=== PATIENT | female | born 1955 | race Caucasian/White ===

== ENCOUNTER → 2016-11-03 | Outpatient (CLI) | payer OTHER ==
--- NOTE | 2016-11-03 10:04 | MM ---
Reason for exam: screening (asymptomatic). Last mammogram was performed 1 year and 1 month ago. History: Patient is postmenopausal. Benign right mammotome panel of the right breast, July 31, 2010. Benign excisional biopsy of the left breast, June 07, 2007. Benign excisional biopsy of the right breast, December 24, 1999. Took hormonal contraceptives for 4 years beginning at age 48. Physical Findings: A clinical breast exam by your physician is recommended on an annual basis and results should be correlated with mammographic findings. MG Screening Mammo w CAD Bilateral CC and MLO view(s) were taken. Prior study comparison: September 30, 2015, bilateral MG screening mammo w CAD. November 24, 2013, bilateral digital screening mammo w/CAD. August 18, 2012, bilateral digital screening mammo w/CAD. There are scattered fibroglandular densities. Finding: There are typically benign dystrophic, round calcifications in both breasts. Previous mammotome biopsy in the right breast. Developing asymmetry stable in the left breast anterior middle depth. ASSESSMENT: Incomplete: need additional imaging evaluation, BI-RAD 0 RECOMMENDATION: Special view mammogram of the left breast. If lesion persists on supplemental views, image directed ultrasound is recommended. [facility] will attempt to contact patient to return for supplemental views and ultrasound if indicated.
== END | disposition home or self-care (01) ==
LOC: RADMAMWWP 06:48
PROVIDERS: ATTEND Obstetrics & Gynecology
DX: Z12.31 Encounter for screening mammogram for malignant neoplasm of breast (principal)

== ENCOUNTER → 2016-11-09 | Outpatient (CLI) | payer OTHER ==
--- NOTE | 2016-11-09 08:20 | MM ---
Reason for exam: additional evaluation requested from abnormal screening. Last mammogram was performed less than 1 month ago. History: Patient is postmenopausal. Benign right mammotome panel of the right breast, July 31, 2010. Benign excisional biopsy of the left breast, June 07, 2007. Benign excisional biopsy of the right breast, December 24, 1999. Took hormonal contraceptives for 4 years beginning at age 48. Physical Findings: Nurse did not find any significant physical abnormalities on exam. MG Work Up Mamm w CAD LT Spot compression CC, spot compression MLO, and LM view(s) were taken of the left breast. Prior study comparison: November 03, 2016, bilateral MG screening mammo w CAD. September 30, 2015, bilateral MG screening mammo w CAD. November 24, 2013, bilateral digital screening mammo w/CAD. There are scattered fibroglandular densities. The questioned nodular asymmetry on the CC view along the retroareolar plane becomes less defined with spot compression with an appearance similar to 2016. A 6 month follow up is recommended. These results were verbally communicated with the patient and result sheet given to the patient on 11/09/16. ASSESSMENT: Probably benign, BI-RAD 3 RECOMMENDATION: Follow-up diagnostic mammogram of the left breast in 6 months.
== END | disposition home or self-care (01) ==
LOC: RADMAMWWP 06:48
PROVIDERS: ATTEND Obstetrics & Gynecology
DX: R92.8 Other abnormal and inconclusive findings on diagnostic imaging of breast (principal)

== ENCOUNTER 2017-03-12 08:52 | Day surgery (SDC) | payer OTHER ==
[2017-03-10 12:59] VITALS: BMI 36.3
[~2017-03-12 08:52] MED LIST: LACTATED RINGERS 1,000 ML IV SCH; LIDOCAINE 1% 20 ML VIAL (10MG/ML) FOR IV START INTRADERMA PRN
[2017-03-12 09:40] VITALS: RESP 16; TEMP 99
[2017-03-12] MEDS ORDERED: PROPOFOL 10 MG/ML 20 ML VIAL IV ONE (10:39)
--- NOTE | 2017-03-12 11:01 | P.PCN ---
Date of Procedure: 03/12/17 Preoperative Diagnosis: Postoperative Diagnosis: Procedure(s) Performed: BRIEF HISTORY: Patient is a 62-year-old pleasant white female, scheduled for an elective colonoscopy as a part of evaluation of prior history of colon polyps. Her last colonoscopy was 3 years ago and was noted to have a tubular adenoma. She also has family history of colon cancer diagnosed in her father at age 80. PROCEDURE PERFORMED: Colonoscopy with snare polypectomy. PREOPERATIVE DIAGNOSIS: History of colon polyps. IV sedation per Anesthesia. PROCEDURE: After informed consent was obtained, the patient, was brought into the endoscopy unit. IV sedation was administered by Anesthesia under continuous monitoring. Digital rectal examination was normal. Initially the Olympus CF- 160 flexible video colonoscope was then inserted in the rectum, gradually advanced into the cecum without any difficulty. Careful examination was performed as the scope was gradually being withdrawn. Ileocecal valve and the appendiceal orifice were visualized and appeared normal. Prep was excellent. Mucosa of the cecum, ascending colon, appeared normal. In the transverse colon there was a 7 mm polyp that was removed by snare polypectomy. In the descending colon there were 2 polyps measuring 5 mm and 7 mm in size both of which were removed by snare polypectomy. Rest of the transverse colon, descending colon, sigmoid colon, and rectum appeared normal. Adult sigmoid diverticulosis seen. Retroflexion was performed in the rectum and no lesions were seen. The patient tolerated the procedure well. IMPRESSION: 7 mm transverse colon polyp status post polypectomy 5 mm and 7 mm descending colon polyp status post polypectomy Scattered sigmoid diverticulosis RECOMMENDATIONS: Findings of this examination were discussed with the patient as well as a family. She was advised to follow with the biopsy results and based the biopsy results have a repeat colonoscopy in 3-5 years. Implants: Indications for Procedure: Operative Findings: Description of Procedure:
[2017-03-12 11:08] VITALS: PULSE 60
[2017-03-12 11:39] VITALS: BP 125/78
== END 2017-03-12 11:53 | disposition home or self-care (01) ==
LOC: ORWHC2ENDO 08:52
PROVIDERS: ATTEND Internal Medicine Gastroenterology
DX: Z12.11 Encounter for screening for malignant neoplasm of colon (principal); D12.3 Benign neoplasm of transverse colon; D12.5 Benign neoplasm of sigmoid colon; K57.30 Diverticulosis of large intestine without perforation or abscess without bleeding; Z86.010 Personal history of colon polyps; Z80.0 Family history of malignant neoplasm of digestive organs; I10 Essential (primary) hypertension; K21.9 Gastro-esophageal reflux disease without esophagitis; Z79.899 Other long term (current) drug therapy
CPT/HCPCS: 88305; 45385; J2704

== ENCOUNTER → 2017-05-10 | Outpatient (CLI) | payer OTHER ==
--- NOTE | 2017-05-10 08:02 | MM ---
Reason for exam: follow-up at short interval from prior study. Last mammogram was performed 6 months ago. History: Patient is postmenopausal. Benign right mammotome panel of the right breast, July 31, 2010. Benign excisional biopsy of the left breast, June 07, 2007. Benign excisional biopsy of the right breast, December 24, 1999. Took hormonal contraceptives for 4 years beginning at age 48. Physical Findings: Nurse did not find any significant physical abnormalities on exam. MG Diagnostic Mammo LT w CAD CC and MLO view(s) were taken of the left breast. Prior study comparison: November 09, 2016, left breast MG work up mamm w CAD LT. November 03, 2016, bilateral MG screening mammo w CAD. There are scattered fibroglandular densities. Finding: There are stable typically benign grouped/clustered, fine calcifications in the lower inner quadrant, middle position of the left breast, 7cm from the nipple. No significant changes in finding since November 09, 2016. These results were verbally communicated with the patient and result sheet given to the patient on 05/10/17. ASSESSMENT: Benign, BI-RAD 2 RECOMMENDATION: Return to routine screening mammogram schedule for both breasts. Back on schedule.
== END | disposition home or self-care (01) ==
LOC: RADMAMWWP 07:22
PROVIDERS: ATTEND Obstetrics & Gynecology
DX: R92.8 Other abnormal and inconclusive findings on diagnostic imaging of breast (principal)

== ENCOUNTER → 2019-03-28 | Outpatient (CLI) | payer MEDICARE ==
--- NOTE | 2019-03-29 13:49 | MM ---
Reason for exam: screening (asymptomatic). Last mammogram was performed 1 year and 11 months ago. History: Patient is postmenopausal. Benign right mammotome panel of the right breast, July 31, 2010. Benign excisional biopsy of the left breast, June 07, 2007. Benign excisional biopsy of the right breast, December 24, 1999. Took hormonal contraceptives for 4 years beginning at age 48. Physical Findings: A clinical breast exam by your physician is recommended on an annual basis and results should be correlated with mammographic findings. MG 3D Screening Mammo W/Cad Bilateral CC and MLO view(s) were taken. Prior study comparison: May 10, 2017, left breast MG diagnostic mammo LT w CAD. November 09, 2016, left breast MG work up mamm w CAD LT. The breast tissue is heterogeneously dense. This may lower the sensitivity of mammography. Benign appearing bilateral calcifications. Post surgical change on the left. Right biopsy marker noted. Numerous moles. ASSESSMENT: Benign, BI-RAD 2 RECOMMENDATION: Routine screening mammogram of both breasts in 1 year.
== END | disposition home or self-care (01) ==
LOC: RADMAMWWP 07:44
PROVIDERS: ATTEND Family Medicine
DX: Z12.31 Encounter for screening mammogram for malignant neoplasm of breast (principal)
CPT/HCPCS: 77063; 77067

== ENCOUNTER 2021-03-07 09:46 | Day surgery (SDC) | payer MEDICARE ==
[2021-03-04 12:41] VITALS: BMI 38.9
[~2021-03-07 09:46] MED LIST changes: -LIDOCAINE 1% 20 ML VIAL (10MG/ML) FOR IV START INTRADERMA PRN
[2021-03-07 10:11] VITALS: RESP 16; TEMP 99.8
[2021-03-07] MEDS ORDERED: LIDOCAINE 1% (10MG/ML) FOR IV START INTRADERMA ONE (10:30)
[2021-03-07] MEDS ORDERED: LIDOCAINE 1% INJ 10MG/ML (20 ML MDV) ONE (11:24)
[2021-03-07] MEDS ORDERED: PROPOFOL 10 MG/ML 20 ML VIAL IV ONE (11:24)
--- NOTE | 2021-03-07 11:40 | P.PCN ---
Date of Procedure: 03/07/21 Procedure(s) Performed: BRIEF HISTORY: Patient is a 66-year-old pleasant white female scheduled for an elective colonoscopy as a part of evaluation of prior history of colon polyps. Last colonoscopy was 3 years ago. PROCEDURE PERFORMED: Colonoscopy biopsy and snare polypectomy. PREOPERATIVE DIAGNOSIS: History of Colon polyps. IV sedation per Anesthesia. PROCEDURE: After informed consent was obtained, the patient, was brought into the endoscopy unit. IV sedation was administered by Anesthesia under continuous monitoring. Digital rectal examination was normal. Initially the Olympus CF-160 flexible video colonoscope was then inserted in the rectum, gradually advanced into the cecum without any difficulty. Careful examination was performed as the scope was gradually being withdrawn. Ileocecal valve and the appendiceal orifice were visualized and appeared normal. Prep was excellent. Mucosa of the cecum appeared normal. Ascending colon there was a 2 mm polyp that was removed by cold biopsy. In the hepatic flexure there was a 3 mm polyp that was removed by cold biopsy. In the transverse colon there was a 7-8 mm polyp that was removed by snare polypectomy. Rest of the, ascending colon, transverse colon, descending colon, sigmoid colon, and rectum appeared normal. Scattered sigmoid diverticula cyst seen. Retroflexion was performed in the rectum and no lesions were seen. The patient tolerated the procedure well. IMPRESSION: 2 mm ascending colon polyp status post cold biopsy 7-8 mm transverse colon polyp status post polypectomy 3 mm hepatic flexure polyp status post cold biopsy RECOMMENDATIONS: Findings of this examination were discussed with the patient as well as her family. She was advised to follow with the biopsy results and if the biopsy shows an adenoma she can have a repeat colonoscopy in 3-5 years.
[2021-03-07 12:03] VITALS: BP 123/81; PULSE 65
== END 2021-03-07 12:15 ==
LOC: ORWHC2ENDO 09:46
PROVIDERS: ATTEND Internal Medicine Gastroenterology
DX: Z12.11 Encounter for screening for malignant neoplasm of colon (principal); D12.2 Benign neoplasm of ascending colon; D12.3 Benign neoplasm of transverse colon; Z79.899 Other long term (current) drug therapy; I10 Essential (primary) hypertension; E78.5 Hyperlipidemia, unspecified; K21.9 Gastro-esophageal reflux disease without esophagitis
CPT/HCPCS: 88305; 45385; J2001; J2704

== ENCOUNTER → 2022-07-24 | Outpatient (CLI) | payer MEDICARE ==
--- NOTE | 2022-07-24 13:45 | MM ---
Reason for Exam: Screening (asymptomatic). Last mammogram was performed 3 year(s) and 4 month(s) ago. Patient History: Menarche at age 11. First Full-Term at age 22. Postmenopausal. Hormonal Contraceptives, starting at age 48 for 4 years. 06/07/2007, Benign Excisional Biopsy on the left side. 07/31/2010, Benign Core Biopsy on the right side. 12/24/1999, Benign Excisional Biopsy on the right side. Risk Values: Wendy 5 year model risk: 2.3%. NCI Lifetime model risk: 7.4%. Prior Study Comparison: 11/09/2016 Left Diagnostic Mammogram, [facility]. 05/10/2017 Left Diagnostic Mammogram, [facility]. 03/28/2019 Bilateral Screening Mammogram, [facility]. Tissue Density: There are scattered fibroglandular densities. Findings: Analyzed By CAD. There is no suspicious group of microcalcifications or new suspicious mass in either breast. Overall Assessment: Benign, BI-RAD 2 Management: Screening Mammogram of both breasts in 1 year. A clinical breast exam by your physician is recommended on an annual basis and results should be correlated with mammographic findings. Electronically signed and approved by: Bandar Munoz M.D. Radiologis
== END | disposition home or self-care (01) ==
LOC: RADMAMWWP 06:54
PROVIDERS: ATTEND Family Medicine
DX: Z12.31 Encounter for screening mammogram for malignant neoplasm of breast (principal); Z78.0 Asymptomatic menopausal state; Z98.890 Other specified postprocedural states
CPT/HCPCS: 77063; 77067

== ENCOUNTER → 2023-09-29 | Outpatient (CLI) | payer MEDICARE ==
--- NOTE | 2023-10-01 16:08 | MM ---
Reason for Exam: Screening (asymptomatic). Last mammogram was performed 1 year(s) and 2 month(s) ago. Patient History: Menarche at age 11. First Full-Term at age 22. Postmenopausal. Hormonal Contraceptives, starting at age 48 for 4 years. 06/07/2007, Benign Excisional Biopsy on the left side. 07/31/2010, Benign Core Biopsy on the right side. 12/24/1999, Benign Excisional Biopsy on the right side. Risk Values: Wendy 5 year model risk: 2.3%. NCI Lifetime model risk: 7.1%. Prior Study Comparison: 05/10/2017 Left Diagnostic Mammogram, [facility]. 03/28/2019 Bilateral Screening Mammogram, [facility]. 07/24/2022 Bilateral MG 3D screening mammo w/cad, [facility]. Tissue Density: There are scattered fibroglandular densities. Findings: Analyzed By CAD. Pattern appears symmetrical and stable. No significant interval change is evident. Benign spherical calcifications in the left breast. There are scattered benign calcifications bilaterally. Moles are identified in the right breast. No suspicious groups of microcalcifications, spiculated or lobular masses, architectural distortion or other secondary signs of malignancy are mammographically apparent. Overall Assessment: Benign, BI-RAD 2 Management: Screening Mammogram of both breasts in 1 year. A negative mammogram report should not preclude additional follow up of suspicious palpable abnormalities. Patient should continue monthly self breast exam. A clinical breast exam by your physician is recommended on an annual basis and results should be correlated with mammographic findings. Electronically signed and approved by: Heber Connor D.O. Radiologis
== END | disposition home or self-care (01) ==
LOC: RADMAMWWP 10:54
PROVIDERS: ATTEND Family Medicine
DX: Z12.31 Encounter for screening mammogram for malignant neoplasm of breast (principal); Z78.0 Asymptomatic menopausal state
CPT/HCPCS: 77063; 77067

== ENCOUNTER → 2024-04-04 | Outpatient (CLI) | payer MEDICARE ==
--- NOTE | 2024-04-04 21:58 | US ---
EXAMINATION TYPE: US kidneys/renal and bladder DATE OF EXAM: 04/04/2024 COMPARISON: NONE CLINICAL INDICATION: Female, 69 years old with history of N18.32 CHRONIC KIDNEY DISEASE, STAGE 3B; Xavier mcgowan denies any signs or symptoms at this time. Hx HTN EXAM MEASUREMENTS: Right Kidney: 9.9 x 4.1 x 4.4 cm Left Kidney: 11.7 x 4.9 x 5.0 cm Post Void Residual Volume: NA mL Right Kidney: ? Cortical thinning Left Kidney: Simple cyst noted measuring 1.7 x 1.4 x 2.1 cm Bladder: Not fully distended: WNL as visualized Bilateral Jets seen: Yes Normal Post Void Residual: NA Incidental; ? Heterogenous, bulky, enlarged uterus IMPRESSION: Simple left renal cysts.
== END | disposition home or self-care (01) ==
LOC: RADUSWWP 10:05
PROVIDERS: ATTEND Family Medicine
DX: N28.1 Cyst of kidney, acquired (principal); N18.32 Chronic kidney disease, stage 3b; R94.4 Abnormal results of kidney function studies
CPT/HCPCS: 76770

== ENCOUNTER → 2025-01-08 | Outpatient (CLI) | payer MEDICARE ==
--- NOTE | 2025-01-08 08:09 | MM ---
Reason for Exam: Screening (asymptomatic). Last mammogram was performed 1 year(s) and 3 month(s) ago. Patient History: Menarche at age 11. First Full-Term at age 22. Postmenopausal. Hormonal Contraceptives, starting at age 48 for 4 years. 06/07/2007, Benign Excisional Biopsy on the left side. 07/31/2010, Benign Core Biopsy on the right side. 12/24/1999, Benign Excisional Biopsy on the right side. Risk Values: Wendy 5 year model risk: 2.3%. NCI Lifetime model risk: 6.7%. Prior Study Comparison: 03/28/2019 Bilateral Screening Mammogram, [facility]. 07/24/2022 Bilateral MG 3D screening mammo w/cad, [facility]. 09/29/2023 Bilateral MG 3D screening mammo w/cad, [facility]. Tissue Density: There are scattered areas of fibroglandular density. Findings: Analyzed By CAD. There are new loosely microcalcifications upper outer left breast. Spot magnification views are recommended. Overall Assessment: Incomplete: need additional imaging evaluation, BI-RAD 0 Management: Diagnostic Mammogram of the left breast. . Patient should continue monthly self-breast exams. A clinical breast exam by your physician is recommended on an annual basis. This exam should not preclude additional follow-up of suspicious palpable abnormalities. Note on Wendy scores and lifetime risk: 1. A Wendy score greater than 3% is considered moderate risk. If this is the case, consider specialist referral to assess eligibility for a risk reducing agent. 2. If overall lifetime risk for the development of breast cancer is 20% or higher, the patient may qualify for future screening with alternating mammogram and breast MRI. [facility], , 01/08/2025 8:06 AM. Electronically signed and approved by: Bandar Munoz M.D. Radiologis
== END | disposition home or self-care (01) ==
LOC: RADMAMWWP 06:58
PROVIDERS: ATTEND Family Medicine
DX: Z12.31 Encounter for screening mammogram for malignant neoplasm of breast (principal); R92.323 Mammographic fibroglandular density, bilateral breasts; R92.0 Mammographic microcalcification found on diagnostic imaging of breast; Z78.0 Asymptomatic menopausal state; Z92.0 Personal history of contraception
CPT/HCPCS: 77063; 77067

== ENCOUNTER → 2025-01-10 | Outpatient (CLI) | payer MEDICARE ==
--- NOTE | 2025-01-10 08:29 | MM ---
Reason for Exam: Additional evaluation requested from abnormal screening. Last screening mammogram was performed less than 1 month ago. Patient History: Menarche at age 11. First Full-Term at age 22. Postmenopausal. Hormonal Contraceptives, starting at age 48 for 4 years. 06/07/2007, Benign Excisional Biopsy on the left side. 07/31/2010, Benign Core Biopsy on the right side. 12/24/1999, Benign Excisional Biopsy on the right side. Risk Values: Wendy 5 year model risk: 2.3%. NCI Lifetime model risk: 6.7%. Prior Study Comparison: 11/03/2016 Bilateral Screening Mammogram, [facility]. 05/10/2017 Left Diagnostic Mammogram, [facility]. 07/24/2022 Bilateral MG 3D screening mammo w/cad, [facility]. 09/29/2023 Bilateral MG 3D screening mammo w/cad, [facility]. 01/08/2025 Bilateral MG 3D screening mammo w/cad, [facility]. Tissue Density: Left: There are scattered areas of fibroglandular density. Findings: Analyzed By CAD. Very indeterminate microcalcifications upper outer left breast 7.4 cm from the nipple. Tissue diagnosis is recommended. Overall Assessment: Suspicious, BI-RAD 4 Management: Stereotactic Core Biopsy of the left breast. . Results were given to the patient verbally at the time of exam. Patient should continue monthly self-breast exams. A clinical breast exam by your physician is recommended on an annual basis. This exam should not preclude additional follow-up of suspicious palpable abnormalities. Note on Wendy scores and lifetime risk: 1. A Wendy score greater than 3% is considered moderate risk. If this is the case, consider specialist referral to assess eligibility for a risk reducing agent. 2. If overall lifetime risk for the development of breast cancer is 20% or higher, the patient may qualify for future screening with alternating mammogram and breast MRI. [facility], , 01/10/2025 8:26 AM. Electronically signed and approved by: Bandar Munoz M.D. Radiologis
== END | disposition home or self-care (01) ==
LOC: RADMAMWWP 07:46
PROVIDERS: ATTEND Family Medicine
DX: R92.8 Other abnormal and inconclusive findings on diagnostic imaging of breast (principal); R92.322 Mammographic fibroglandular density, left breast; Z78.0 Asymptomatic menopausal state; Z92.0 Personal history of contraception
CPT/HCPCS: 77061; 77065

== ENCOUNTER → 2025-01-18 | Day surgery (SDC) | payer MEDICARE ==
[~2025-01-18] MED LIST changes: +ALPRAZolam 0.25 MG TAB PO PRN; -LACTATED RINGERS 1,000 ML IV SCH
[2025-01-18 11:19] VITALS: BP 135/85; PULSE 90; RESP 16; TEMP 98.2
--- NOTE | 2025-01-25 08:32 | MM ---
Risk Values: Wendy 5 year model risk: 2.3%. NCI Lifetime model risk: 6.7%. Prior Study Comparison: 09/29/2023 Bilateral MG 3D screening mammo w/cad, [facility]. 01/08/2025 Bilateral MG 3D screening mammo w/cad, [facility]. 01/10/2025 Left MG 3D work up w/cad , [facility]. Pathology Description: Marker Left Behind. Specimen Radiograph. Calcium Found: Yes Approach: CC FA Needle Type: Eviva Cores: 6 Skin Nicks: 1 Gauge: 9 The procedure of stereotactic guided core biopsy was explained to the patient. Benefits, alternatives, and risks were discussed. An informed consent was then obtained. The shortness pathway for biopsy was chosen. Shortness pathway was lateral to medial approach. Overlying skin is cleansed with ChloraPrep. Lidocaine with bicarbonate is used as anesthetic into the skin and subcutaneous tissue. Lidocaine with epinephrine is used as anesthetic into the deeper tissues during sampling. A vacuum assisted biopsy gun was used to obtain multiple core samples. The patient tolerated the procedure well without any immediate complication. The patient was kept in the radiology department for short stay after the procedure and then discharged home in stable condition. Targeted calcifications are identified in specimen mammogram. Patient was taken to a dedicated mammography suite for post procedure clip placement verification. Post biopsy mammogram shows the clip to appear in satisfactory position relative to the targeted area of concern on the preprocedure images. Impression: SUCCESSFUL, UNCOMPLICATED STEREOTACTIC GUIDED CORE BIOPSY OF AREA OF CONCERN IN THE LEFT BREAST. PATHOLOGY STATUS: Results pending Intermediate index of suspicion noted at time of procedure. [facility], , 01/18/2025 2:42 PM. Pathology Results: Result: Malignant, Ductal carcinoma in situ, comedo type. Pathology and radiology were reviewed. Findings are concordant. 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 See Surgical Pathology Cancer Case Summary and Comment. Overall Assessment: Malignant Management: Surgical Consultation of the left breast. Electronically signed and approved by: Serafin Peña M.D.
== END | disposition home or self-care (01) ==
LOC: RADMAMWWP 09:40
PROVIDERS: ATTEND Family Medicine
DX: D05.12 Intraductal carcinoma in situ of left breast (principal)
CPT/HCPCS: 88305; 88342; 88341; 19081; A4648; J2003

== ENCOUNTER → 2025-02-01 | Outpatient (CLI) | payer MEDICARE ==
[2025-02-01 16:27] VITALS: BP 118/82; PULSE 115; RESP 17; TEMP 97.9
--- NOTE | 2025-02-01 16:40 | P.GSCN ---
History of Present Illness Consult date: 02/01/25 Reason for Consult: DCIS left breast Requesting physician: Miguel James History of present illness: Sinai is a 69-year-old female seen in consultation for Dr. James regarding a biopsy-proven left breast ductal carcinoma in situ. She underwent a bilateral screening mammogram on 01-08-2025 which resulted in a left breast diagnostic mammogram. This revealed some indeterminate calcifications for which stereotactic core biopsy was recommended. Stereotactic core biopsy was performed on 01 18 25. This revealed intermediate to high-grade DCIS with comedonecrosis and calcifications. This was ER/MI positive at 91 to 100%. She did not feel anything of concern prior to her mammogram. She has had biopsy about 20 years ago in the right breast it was benign. She is not complaining of any nipple discharge or skin changes. No recent trauma or infection in the breast. caffeine: none Nicotine: none BCP: used for about 2 years Chocolate: occasional Family History: mother: ovarian cancer brother: ? cancer Hormonal History: menarche: 13 , breast fed: no, age at first : 22 menopause: 49 Surgical History: left breast lumpectomy tubaligation anal fistula Medical History; kidney function decreased decreased memory Social History; nicotine:none alcohol: none drugs: none Review of Systems - Constitutional Reports weight loss, Denies fever - EENT Eyes: denies blurred vision Ears: deny: decreased hearing, tinnitus Ears, nose, mouth and throat: Denies dysphagia - Breasts bilateral: as per HPI - Cardiovascular Denies chest pain, Denies shortness of breath - Respiratory Denies cough, Denies 7 - Gastrointestinal Reports as per HPI - Genitourinary Genitourinary: Denies dysuria, Denies hematuria Menstruation: Reports postmenopausal - Musculoskeletal Reports as per HPI - Integumentary Denies rash, Denies unusual bruising - Neurological Denies headaches, Denies syncope - Psychiatric Reports as per HPI, Reports anxiety - Endocrine Endocrine Comment(s): weight loss does not taste well since COVID Reports as per HPI, Reports weight change - Hematologic/Lymphatic Reports as per HPI - Allergic/Immunologic Reports as per HPI, Reports seasonal allergies Past Medical History Past Medical History: GERD/Reflux, Hyperlipidemia, Hypertension Additional Past Medical History / Comment(s): HAYFEVER, HEMORRHOIDS, COVID 07/2020, History of Any Multi-Drug Resistant Organisms: None Reported Past Surgical History: Breast Surgery, Cholecystectomy, Hernia Repair Additional Past Surgical History / Comment(s): cyst removed from left breast, anal surgery for a tear as a teen, Past Anesthesia/Blood Transfusion Reactions: No Reported Reaction Additional Past Anesthesia/Blood Transfusion Reaction / Comm: . Past Psychological History: Anxiety Additional Psychological History / Comment(s): has had anxiety during the night since she had COVID in Jul 2020 Smoking Status: Never smoker Past Alcohol Use History: None Reported Past Drug Use History: None Reported - Past Family History Mother Family Medical History: Cancer Additional Family Medical History / Comment(s): UTERINE CANCER Father Family Medical History: Cancer Additional Family Medical History / Comment(s): COLON CANCER Brother(s) Family Medical History: Cancer Medications and Allergies Home Medications Medication Instructions Recorded Confirmed Type Ezetimibe/Simvastatin [Vytorin 1 tab PO HS 03/10/17 01/18/25 History 10-20 mg Tablet] Famotidine [Pepcid] 20 mg PO DAILY 01/12/25 01/18/25 History amLODIPine [Norvasc] 5 mg PO DAILY 01/12/25 01/18/25 History Allergies Allergy/AdvReac Type Severity Reaction Status Date / Time amoxicillin AdvReac Nausea & Verified 02/01/25 16:13 Vomiting & Diarrhea Surgical - Exam - General no distress - Eyes normal ocular movement - Neck trachea midline - Respiratory normal respiratory effort, clear to auscultation - Cardiovascular Rhythm: regular Heart Sounds: normal: S1, S2 - Integumentary normal turgor - Neurologic no disoriented, no combative - Musculoskeletal normal gait - Psychiatric oriented to time, oriented to person, oriented to place, speech is normal, memory intact Breast Exam: BRA: 44C inspection: scar left breast, bilateral grade 2 ptosis Right breast: Multi positional exam fibrocystic changes no dominant masses or nodules of concern Right axilla: No adenopathy of concern Left breast: Multi positional exam increased fullness near area of stereotactic core biopsy site, biopsy site is clean and dry Left axilla: No adenopathy of concern Results Bilateral mammogram 01-08-2025 led to a left breast diagnostic mammogram 01-10-2025 led to a stereotactic core biopsy 01 18 25 Pathology from stereotactic core biopsy revealed ductal carcinoma in situ Assessment and Plan Assessment: Impression: Left breast DCIS Plan: Presentation of case at tumor board CC: Dr. James
== END ==
LOC: WWCWWP 14:49
PROVIDERS: ATTEND Surgery
DX: D05.12 Intraductal carcinoma in situ of left breast (principal); Z88.0 Allergy status to penicillin

== ENCOUNTER → 2025-03-01 | Outpatient (CLI) | payer MEDICARE ==
[2025-03-01 10:00] VITALS: BP 137/83; PULSE 74; RESP 16; TEMP 98.9
--- NOTE | 2025-03-01 10:16 | P.PN ---
Subjective Progress Note Date: 03/01/25 Principal diagnosis: left breast DCIS History of Present Illness Consult date: 03-01-25 Reason for Consult: DCIS left breast Requesting physician: Miguel James History of present illness: Sinai is a 70-year-old female seen in consultation for Dr. James regarding a biopsy-proven left breast ductal carcinoma in situ. She underwent a bilateral screening mammogram on 01-08-2025 which resulted in a left breast diagnostic mammogram. This revealed some indeterminate calcifications for which stereotactic core biopsy was recommended. Stereotactic core biopsy was p erformed on 01 18 25. This revealed intermediate to high-grade DCIS with comedonecrosis and calcifications. This was ER/MT positive at 91 to 100%. She did not feel anything of concern prior to her mammogram. She has had biopsy about 20 years ago in the right breast it was benign. She is not complaining of any nipple discharge or skin changes. No recent trauma or infection in the breast. Patient's case presented at tumor board and 02-13-2025. Recommendation for a left breast needle localization lumpectomy possible oncoplastic tissue transfer. OR scheduled for 03 20 25. caffeine: none Nicotine: none BCP: used for about 2 years Chocolate: occasional Family History: mother: ovarian cancer brother: ? cancer Hormonal History: menarche: 13 , breast fed: no, age at first : 22 menopause: 49 Surgical History: left breast lumpectomy tubaligation anal fistula Medical History; kidney function decreased decreased memory Social History; nicotine:none alcohol: none drugs: none Review of Systems - Constitutional Reports weight loss, Denies fever - EENT Eyes: denies blurred vision Ears: deny: decreased hearing, tinnitus Ears, nose, mouth and throat: Denies dysphagia - Breasts bilateral: as per HPI - Cardiovascular Denies chest pain, Denies shortness of breath - Respiratory Denies cough - Gastrointestinal Reports as per HPI - Genitourinary Genitourinary: Denies dysuria, Denies hematuria Menstruation: Reports postmenopausal - Musculoskeletal Reports as per HPI - Integumentary Denies rash, Denies unusual bruising - Neurological Denies headaches, Denies syncope - Psychiatric Reports as per HPI, Reports anxiety - Endocrine Endocrine Comment(s): weight loss does not taste well since COVID Reports as per HPI, Reports weight change - Hematologic/Lymphatic Reports as per HPI - Allergic/Immunologic Reports as per HPI, Reports seasonal allergies Past Medical History Past Medical History: GERD/Reflux, Hyperlipidemia, Hypertension Additional Past Medical History / Comment(s): HAYFEVER, HEMORRHOIDS, COVID 07/2020, History of Any Multi-Drug Resistant Organisms: None Reported Past Surgical History: Breast Surgery, Cholecystectomy, Hernia Repair Additional Past Surgical History / Comment(s): cyst removed from left breast, anal surgery for a tear as a teen, Past Anesthesia/Blood Transfusion Reactions: No Reported Reaction Additional Past Anesthesia/Blood Transfusion Reaction / Comm: . Past Psychological History: Anxiety Additional Psychological History / Comment(s): has had anxiety during the night since she had COVID in Jul 2020 Smoking Status: Never smoker Past Alcohol Use History: None Reported Past Drug Use History: None Reported - Past Family History Mother Family Medical History: Cancer Additional Family Medical History / Comment(s): UTERINE CANCER Father Family Medical History: Cancer Additional Family Medical History / Comment(s): COLON CANCER Brother(s) Family Medical History: Cancer Medications and Allergies Home Medications Medication Instructions Recorded Confirmed Type Ezetimibe/Simvastatin [Vytorin 1 tab PO HS 03/10/17 01/18/25 History 10-20 mg Tablet] Famotidine [Pepcid] 20 mg PO DAILY 01/12/25 01/18/25 History amLODIPine [Norvasc] 5 mg PO DAILY 01/12/25 01/18/25 History Allergies Allergy/AdvReac Type Severity Reaction Status Date / Time amoxicillin AdvReac Nausea & Verified 02/01/25 16:13 Vomiting & Diarrhea Objective - Vital Signs Vital signs: Vital Signs Temp 98.9 F 03/01/25 09:57 Pulse 74 03/01/25 09:57 Resp 16 03/01/25 09:57 BP 137/83 03/01/25 09:57 Pulse Ox 98 03/01/25 09:57 FiO2 Intake & Output 02/28/25 03/01/25 03/01/25 18:59 06:59 18:59 Weight 113.398 kg - Constitutional General appearance: Present: cooperative - EENT Eyes: Present: EOMI ENT: Present: hearing grossly normal - Neck Neck: Present: normal ROM - Respiratory Respiratory: bilateral: CTA - Cardiovascular Rhythm: regular Heart sounds: normal: S1, S2 - Integumentary Integumentary: Present: normal turgor - Musculoskeletal Musculoskeletal: Present: gait normal - Psychiatric Psychiatric: Present: A&O x's 3, appropriate affect, intact judgment & insight - Additional findings Additional findings: Breast Exam: BRA: 44C inspection: scar left breast, bilateral grade 2 ptosis Right breast: Multi positional exam fibrocystic changes no dominant masses or nodules of concern Right axilla: No adenopathy of concern Left breast: Multi positional exam increased fullness near area of stereotactic core biopsy site, biopsy site is clean and dry Left axilla: No adenopathy of concern Assessment and Plan Assessment: Impression: Left breast DCIS Plan: Presentation of case at tumor board done 1. pre-op clearance/ Dr. James 2. surgery March 20/left breast needle localization lumpectomy, possible oncoplastic tissue transfer Passed arm abduction with no difficulty Pre-op education given to patient Risk and benefits of the surgery were discussed with the patient and her . Risk include but are not limited to bleeding, infection, reaction to the anesthetic. If the margins were to be positive then possible further tissue acquisition may be necessary. CC: Dr. James
== END ==
LOC: WWCWWP 09:40
PROVIDERS: ATTEND Surgery
DX: D05.12 Intraductal carcinoma in situ of left breast (principal); Z88.0 Allergy status to penicillin

== ENCOUNTER 2025-03-20 08:07 | Day surgery (SDC) | payer MEDICARE ==
[2025-03-16 14:33] VITALS: BMI 33.3
[~2025-03-20 08:07] MED LIST changes: -ALPRAZolam 0.25 MG TAB PO PRN; +HYDROmorphone 0.5 MG/0.5 ML SYRINGE IVP PRN; +LIDOCAINE 1% (10MG/ML) FOR IV START INTRADERMA PRN; +METHYLENE BLUE 50 MG, DEXTROSE 5% IN WATER 50 ML MISCELLANE ONE; +fentaNYL (PF) 50 MCG/ML 2 ML AMP IV PRN
[2025-03-20] MEDS: IV FLUID CONTINUATION 1,000 ML IV ONE (08:35)
[2025-03-20] MEDS: LACTATED RINGERS 1,000 ML IV SCH (09:23)
[2025-03-20] MEDS: ACETAMINOPHEN TAB 500 MG TAB PO PRN (09:23)
[2025-03-20] MEDS: ALPRAZolam 0.5 MG TAB PO PRN (09:23)
[2025-03-20 09:31] LABS: Basophils # (A) 0.09 10*3/uL (0.00-0.10); Basophils % (A) 1.1 %; Eosinophils # (A) 0.15 10*3/uL (0.04-0.35); Eosinophils % (A) 1.8 %; HCT 48.6 % (37.2-46.3); HGB 16.5 g/dL (12.0-15.0); Lymphocytes # (A) 1.28 10*3/uL (0.90-5.00); Lymphocytes % (A) 15.6 %; MCH 29.5 pg (27.0-32.0); MCHC 34.0 g/dL (32.0-37.0); MCV 86.9 fL (80.0-97.0); Monocytes # (A) 0.65 10*3/uL (0.20-1.00); Monocytes % (A) 7.9 %; Neutrophils # (A) 6.02 10*3/uL (1.80-7.70); Neutrophils % (A) 73.4 %; Platelet Count 263 10*3/uL (140-440); RBC 5.59 10*6/uL (4.10-5.20); RDW 13.7 % (11.5-14.5); WBC 8.21 10*3/uL (4.50-10.00)
[2025-03-20 09:55] LABS: African American GFR (CKD) 54 (>60 ml/min/1.73 sqM); Anion Gap 13 mmol/L; Blood Urea Nitrogen 17 mg/dL (7-17); Calcium 9.5 mg/dL (8.4-10.2); Carbon Dioxide 19 mmol/L (22-30); Chloride 113 mmol/L (98-107); Glucose 123 mg/dL (74-99); Non-African American GFR(CKD) 47 (>60 ml/min/1.73 sqM); Potassium 4.0 mmol/L (3.5-5.1); Sodium 145 mmol/L (137-145)
[2025-03-20] MEDS: SODIUM BICARB 8.4% 50 ML VIAL (1 MEQ/ML) MISCELLANE ONE (10:17)
[2025-03-20] MEDS: LIDOCAINE 1% INJ 10MG/ML (20 ML MDV) SQ ONE ×3 (10:17→11:53)
[2025-03-20] MEDS: METHYLENE BLUE 50 MG/10 ML VIAL MISCELLANE ONE (10:26)
[2025-03-20] MEDS: DEXAMETHASONE SOD PHOSPHATE 4 MG/ML 1 ML VIAL IV ONE (10:44)
[2025-03-20] MEDS: ONDANSETRON 4 MG/2 ML VIAL IVP ONE (10:44)
[2025-03-20] MEDS: HEPARIN SODIUM,PORCINE 5,000 UNIT/ML 1 ML VIAL SQ PRN (10:44)
--- NOTE | 2025-03-20 11:14 | P.NAPBC ---
NAPBC Queries - NAPBC Queries Was patient's case review presented at [facility] tumor board? If no, comment.: Yes Was patient's pathology reviewed at [facility]? If no, comment.: Yes Was breast conservation surgery offered? If no, comment.: Yes Was sentinel node biopsy offered? If no, comment.: No Was diagnosis confirmed by percutaneous core biopsy? If no, comment.: Yes Is patient mastectomy patient?: No Was a preop referral to reconstructive surgeon offered?: No Clinical Stage: left breast DCIS
[2025-03-20] MEDS ORDERED: LIDOCAINE 1% INJ 10MG/ML (20 ML MDV) ONE (11:20)
[2025-03-20] MEDS ORDERED: PHENYLEPHRINE 10 MG/ML VIAL ONE (11:20)
[2025-03-20] MEDS ORDERED: fentaNYL (PF) 50 MCG/ML 2 ML AMP ONE (11:20)
[2025-03-20] MEDS ORDERED: PROPOFOL 10 MG/ML 20 ML VIAL IV ONE (11:20)
--- NOTE | 2025-03-20 12:41 | P.BCAON ---
Date of Procedure: 03/20/25 Preoperative Diagnosis: Left breast DCIS Postoperative Diagnosis: Same Procedure(s) Performed: Left breast needle localization lumpectomy, oncoplastic tissue transfer 37 cm Anesthesia: FACUNDOA Surgeon: Nicolette Sykes Estimated Blood Loss (ml): 5 IV fluids (ml): 500 Pathology: other (Breast tissue) Condition: stable Disposition: same day Indications for Procedure: Biopsy-proven left breast ductal carcinoma in situ Operative Findings: Fibrofatty breast tissue Description of Procedure: The patient was first sent to the radiology department for needle localization of the area of concern in the left breast was performed. Additionally injection of 1 cc of methylene blue was placed at the site of the lesion. The patient was then brought to the operative suite. Following induction of anesthesia the left breast was prepped and draped in a sterile fashion. An incision was made in carried down through the subcutaneous tissue to the shaft of the needle. This tissue was grasped using an Allis clamp. Circumferential dissection was performed. The area of methylene blue was identified and resected. The cavity was 4 x 3 cm in size. After assuring that hemostasis was attained titanium clip s were placed. The specimen was painted for orientation. Radiograph of the specimen revealed the clip to be present in the specimen. The cavity was again examined for hemostasis and Surgicel and powder form was placed. A superior pillar 5 x 2 cm was created. An inferior pillar 5 x 3 cm was created. The 2 pillars were brought together to close the cavity defect. They were secured using 3-0 Vicryl suture. After assuring that hemostasis was attained the subcutaneous tissue was closed using 3-0 Vicryl suture. The skin was closed using 4-0 Monocryl. 10 cc of 1% lidocaine were injected into the incision. Surgical glue was used. The patient tolerated procedure in stable condition. All instrument and sponge counts were correct at the end of the case. No sentinel node sampling was performed.
[2025-03-20 12:47] VITALS: TEMP 96.8
[2025-03-20 13:49] VITALS: RESP 16
[2025-03-20 14:02] VITALS: BP 167/86; PULSE 69
--- NOTE | 2025-03-29 10:36 | MM ---
Pathology Description: Approach: CC FA Needle Type: 5 cm Kopan Microclip in the upper outer left breast at the site of biopsy-proven DCIS is targeted for needle localization. The procedure of needle localization with wire placement and than surgical excision was explained to the patient. Benefits, alternatives, and risks were discussed. An informed consent was then obtained. The shortest pathway for procedure was chosen. Shortest pathway was a superior approach. The overlying skin was prepped and draped in usual sterile fashion. Lidocaine buffered with bicarbonate was used as anesthetic into the skin and subcutaneous tissue up to the level of area of concern. A 5 cm Kopan's needle was used. It was placed via a superior approach under mammographic guidance. Subsequent 90 degrees mammogram show the needle to be in satisfactory position relative to the targeted area. Prior to deploying the wire, 1 mL of methylene blue dye was injected at the level of the clip. At this point, the needle was appropriately advanced and the wire was placed as the needle was withdrawn. The wire was fixed to patient's skin. Images were marked for surgeon. The patient tolerated the procedure well without any immediate complication. The patient was kept in the radiology department for short stay after the procedure and then taken to surgery for surgical excision. Targeted clip weight minimal residual calcifications and the wire are identified in specimen mammogram. The patient was kept in hospital for short stay after the procedure and then discharged home in stable condition. Impression: Successful, uncomplicated needle localization with wire placement and surgical excision of site of biopsy-proven DCIS in the left breast, full pathology results to follow. [facility], Workstation: [id number], 03/20/2025 5:27 PM. Pathology Results: Result: Malignant, Ductal carcinoma in situ, comedo type. Pathology and radiology were reviewed. Findings are concordant. A. LEFT BREAST TISSUE, LUMPECTOMY: High-grade ductal carcinoma in situ (DCIS) with comedonecrosis and microcalcification (see [facility] surgical pathology cancer case summary and comment). All margins negative for DCIS with cauterized high-grade DCIS present very close to and less than 1 mm from medial margin. Negative for invasive carcinoma. B. ADDITIONAL LEFT BREAST TISSUE, EXCISION: Benign breast tissue with fibrocystic change and focal hemorrhage. Inked and cauterized tissue surfaces negative for DCIS and no invasive carcinoma identified. Overall Assessment: Malignant Management: Diagnostic Mammogram of the left breast in 6 months. Electronically signed and approved by: Omega Orellana M.D. Radiologist
== END 2025-03-20 14:33 | disposition home or self-care (01) ==
LOC: OR 08:07
PROVIDERS: ATTEND Surgery
DX: D05.12 Intraductal carcinoma in situ of left breast (principal); N60.12 Diffuse cystic mastopathy of left breast; I10 Essential (primary) hypertension; E78.5 Hyperlipidemia, unspecified; K21.9 Gastro-esophageal reflux disease without esophagitis; Z79.899 Other long term (current) drug therapy; Z80.49 Family history of malignant neoplasm of other genital organs; Z88.0 Allergy status to penicillin
CPT/HCPCS: 19301; 14301; 19281; 80048; 85025; 88342; 88307; 88341; 76098; J1644; J1100; J0690; J2405; J2003; J3010; J2704; Q9968; J2371

== ENCOUNTER → 2025-04-05 | Outpatient (CLI) | payer MEDICARE ==
[2025-04-05 09:58] VITALS: BP 154/79; PULSE 81; RESP 16; TEMP 98.3
--- NOTE | 2025-04-05 10:08 | P.BCPO ---
Progress Note - Text Progress Note Date: 04/05/25 Sinai is a 70 year old female status post left breast lumptctomy on 03-20-25. Her pathology showed high grade DCIS 1.6 mm close to medial margin < 1mm. No invasive cancer. She has done well postoperatively. Examination: Lungs: Clear Heart: Regular rate and rhythm Incision: Clean and dry Impression: Patient with close medial margin high-grade tumor Plan: I have discussed the implications of the close medial margin with the patient and her . They have agreed for surgical reexcision of the medial margin. Risk and benefits of the procedure discussed with the patient. Risk include but are not limited to bleeding, infection, reaction to the anesthetic if the new margin were to be positive or additional tissue identified and further surgery may be necessary. They understand and wish to proceed. Post Op Education - Post Op Education Post Op Education Provided Date: 04/05/25 - Functional Assessment Performed?: Yes (arm abduction passed) Path Report - Was patient given path report? Path Report Date Given: 04/05/25
--- NOTE | 2025-04-05 10:17 | P.PN ---
Subjective Progress Note Date: 04/05/25 Principal diagnosis: DCIS/close medial margin 04-05-25 Principal diagnosis: left breast DCIS History of Present Illness Consult date: 03-01-25 Reason for Consult: DCIS left breast Requesting physician: Miguel James History of present illness: Sinai is a 70-year-old female seen in consultation for Dr. James regarding a biopsy-proven left breast ductal carcinoma in situ. She underwent a bilateral screening mammogram on 01-08-2025 which resulted in a left breast diagnostic mammogram. This revealed some indeterminate calcifications for which stereotactic core biopsy was recommended. Stereotactic core biopsy was performed on 01 18 25. This revealed intermediate to high-grade DCIS with comedonecrosis and calcifications. This was ER/ME positive at 91 to 100%. She did not feel anything of concern prior to her mammogram. She has had biopsy about 20 years ago in the right breast it was benign. She is not complaining of any nipple discharge or skin changes. No recent trauma or infection in the breast. Patient's case presented at tumor board and 02-13-2025. Recommendation for a left breast needle localization lumpectomy possible oncoplastic tissue transfer. OR scheduled for 03 20 25. She underwent a left breast needle localization lumpectomy on 03 20 25. Pathology revealed high-grade 1.6 mm ductal carcinoma in situ less than 1 mm from medial margin. After discussion with the patient and her she is going to have reexcision of the medial margin. We have discussed the pos sibility of treatment with radiation and hormone therapy however secondary to the high-grade nature in the close proximity they have opted for reexcision. I have discussed with them that there may not be any residual tumor present they understand and wish to proceed. caffeine: none Nicotine: none BCP: used for about 2 years Chocolate: occasional Family History: mother: ovarian cancer brother: ? cancer Hormonal History: menarche: 13 , breast fed: no, age at first : 22 menopause: 49 Surgical History: left breast lumpectomy tubaligation anal fistula Medical History; kidney function decreased decreased memory Social History; nicotine:none alcohol: none drugs: none Review of Systems - Constitutional Reports weight loss, Denies fever - EENT Eyes: denies blurred vision Ears: deny: decreased hearing, tinnitus Ears, nose, mouth and throat: Denies dysphagia - Breasts bilateral: as per HPI - Cardiovascular Denies chest pain, Denies shortness of breath - Respiratory Denies cough - Gastrointestinal Reports as per HPI - Genitourinary Genitourinary: Denies dysuria, Denies hematuria Menstruation: Reports postmenopausal - Musculoskeletal Reports as per HPI - Integumentary Denies rash, Denies unusual bruising - Neurological Denies headaches, Denies syncope - Psychiatric Reports as per HPI, Reports anxiety - Endocrine Endocrine Comment(s): weight loss does not taste well since COVID Reports as per HPI, Reports weight change - Hematologic/Lymphatic Reports as per HPI - Allergic/Immunologic Reports as per HPI, Reports seasonal allergies Past Medical History Past Medical History: GERD/Reflux, Hyperlipidemia, Hypertension Additional Past Medical History / Comment(s): HAYFEVER, HEMORRHOIDS, COVID 07/2020, History of Any Multi-Drug Resistant Organisms: None Reported Past Surgical History: Breast Surgery, Cholecystectomy, Hernia Repair Additional Past Surgical History / Comment(s): cyst removed from left breast, anal surgery for a tear as a teen, Past Anesthesia/Blood Transfusion Reactions: No Reported Reaction Additional Past Anesthesia/Blood Transfusion Reaction / Comm: . Past Psychological History: Anxiety Additional Psychological History / Comment(s): has had anxiety during the night since she had COVID in Jul 2020 Smoking Status: Never smoker Past Alcohol Use History: None Reported Past Drug Use History: None Reported - Past Family History Mother Family Medical History: Cancer Additional Family Medical History / Comment(s): UTERINE CANCER Father Family Medical History: Cancer Additional Family Medical History / Comment(s): COLON CANCER Brother(s) Family Medical History: Cancer Medications and Allergies Home Medications Medication Instructions Recorded Confirmed Type Ezetimibe/Simvastatin [Vytorin 1 tab PO HS 03/10/17 01/18/25 History 10-20 mg Tablet] Famotidine [Pepcid] 20 mg PO DAILY 01/12/25 01/18/25 History amLODIPine [Norvasc] 5 mg PO DAILY 01/12/25 01/18/25 History Allergies Allergy/AdvReac Type Severity Reaction Status Date / Time amoxicillin AdvReac Nausea & Verified 02/01/25 16:13 Vomiting & Diarrhea Objective - Vital Signs Vital signs: Vital Signs Temp 98.3 F 04/05/25 09:44 Pulse 81 04/05/25 09:44 Resp 16 04/05/25 09:44 BP 154/79 04/05/25 09:44 Pulse Ox 98 04/05/25 09:44 FiO2 Intake & Output 04/04/25 04/05/25 04/05/25 18:59 06:59 18:59 Weight 90.718 kg - Constitutional General appearance: Present: cooperative - EENT Eyes: Present: EOMI ENT: Present: hearing grossly normal - Neck Neck: Present: normal ROM - Respiratory Respiratory: bilateral: CTA - Cardiovascular Rhythm: regular Heart sounds: normal: S1, S2 - Integumentary Integumentary: Present: normal turgor - Musculoskeletal Musculoskeletal: Present: gait normal - Psychiatric Psychiatric: Present: A&O x's 3, appropriate affect, intact judgment & insight - Additional findings Additional findings: Breast Exam: from recent OR BRA: 44C inspection: scar left breast, bilateral grade 2 ptosis Right breast: Multi positional exam fibrocystic changes no dominant masses or nodules of concern Right axilla: No adenopathy of concern Left breast: Well-healed scar recent surgery 04-05-25) Left axilla: No adenopathy of concern Assessment and Plan Assessment: Impression: Left breast DCIS resected on 03-20-25; close medial margin Plan: 1. pre-op clearance/ Dr. James 2. Reexcision left breast medial margin, possible oncoplastic tissue transfer Passed arm abduction with no difficulty Pre-op education given to patient Risk and benefits of the surgery were discussed with the patient and her . Risk include but are not limited to bleeding, infection, reaction to the anesthetic. If the margins were to be positive then possible further tissue acquisition may be necessary. CC: Dr. James
== END ==
LOC: WWCWWP 09:34
PROVIDERS: ATTEND Surgery
DX: D05.12 Intraductal carcinoma in situ of left breast (principal)